=== PATIENT | female | born 1990 | race Caucasian/White ===

== ENCOUNTER → 2017-06-09 | Outpatient (CLI) | payer OTHER ==
[~2017-06-09] VITALS: Ht 154.9 cm; Wt 73.0 kg
[~2017-06-09] MED LIST: ENDOCET 5-3251 EACH PO; Motrin PO; NATALCARE RX1 TABLE1 PO; PRENATAL TABLE1 EAC3 PO; SEASONIQUE 01 TABLET PO; UNISOM SLEEP AI25 MG PO; VITAMIN B-650 M1 PO
[2017-06-09 13:48] VITALS: BP 119/59
== END | disposition home or self-care (01) ==
LOC: IVINF 13:00
DX: Z31.82 Encounter for Rh incompatibility status (principal); Z3A.31 31 weeks gestation of pregnancy
CPT/HCPCS: 96372; J2790

== ENCOUNTER 2017-07-06 19:40 | Inpatient (IN) | payer OTHER ==
[~2017-07-06] VITALS: Ht 154.9 cm; Wt 74.0 kg
[2017-07-06 20:41] VITALS: BP 106/65
[2017-07-06 20:59] LABS: EOSINOPHIL (%) 0.6 % (0-5); EOSINOPHIL COUNT 0.1 K/uL (0-0.3); HEMATOCRIT 31.4 % (36.0-46.0); IMMATURE GRANULOCYTE (%) 0.6 % (0.0-0.7); IMMATURE GRANULOCYTE COUNT 0.1 K/uL; INSTRUMENT ABS NEUTROPHIL CT 6.8 K/uL; LYMPHOCYTE COUNT 1.9 K/uL (1.0-2.8); MCH 28.3 PG (29.0-34.0); MCHC 33.8 G/DL (30.0-36.0); MCV 83.7 FL (83-99); MEAN PLAT.VOLUME 12.1 uM^3 (9.5-12.4); MONOCYTE (%) 7.2 % (3-12); MONOCYTE COUNT 0.7 K/uL (0-0.8); NEUTROPHIL (%) 71.3 % (45-76); NEUTROPHIL COUNT 6.8 K/uL (1.8-6.4); PLATELET COUNT 152 K/uL (156-360); RBC DIS.WIDTH-CV 12.3 % (11.8-14.6); RBC DIS.WIDTH-SD 37.7 % (39-53); RED BLOOD COUNT 3.75 M/uL (3.80-5.20); WHITE BLOOD COUNT 9.6 K/uL (4.1-10.2)
[2017-07-06 21:42] VITALS: BP 108/61
[2017-07-06 21:49] LABS: DRSB INTERNAL CONTROL PASS; PROBE CHECK PASS; SPECIMEN PROCESSING CONTROL PASS
[2017-07-06 22:11] LABS: ADD MIUA? NO; BILIRUBIN NEGATIVE; BLOOD NEGATIVE; COLOR STRAW ((YELLOW)); GLUCOSE (STRIP) NEGATIVE; KETONES NEGATIVE; LEUKOCYTES NEGATIVE; NITRITE NEGATIVE; PROTEIN (STRIP) NEGATIVE; SPECIFIC GRAVITY 1.008 (1.000-1.030); UROBILINOGEN 0.2 MG/DL (0.2-1.0)
[2017-07-06 23:25] VITALS: BP 123/70
[2017-07-07] VITALS (21 sets, daily range): BP systolic 88–120; BP diastolic 52–66
[2017-07-07] MEDS ORDERED: ZOLOFT50 MG PO (00:10)
[2017-07-07 00:36] LABS: AMPHETAMINE NEGATIVE (500 ng/mL); BARBITURATES NEGATIVE (200 ng/mL); BENZODIAZEPINES NEGATIVE (150 ng/mL); COCAINE NEGATIVE (150 ng/mL); INTERNAL CONTROLS VALID? YES; METHADONE NEGATIVE (200 ng/mL); METHAMPHETAMINE NEGATIVE (500 ng/mL); OPIATES (MORPHINE) NEGATIVE (100 ng/mL); OXYCODONE NEGATIVE (100 ng/mL); PHENCYCLIDINE NEGATIVE (25 ng/mL); PROPOXYPHENE NEGATIVE (300 ng/mL); THC CANNABINOIDS NEGATIVE (50 ng/mL); TRICYCLIC ANTIDEPRESSANTS NEGATIVE (300 ng/mL)
[2017-07-08 07:04] VITALS: BP 113/67
[2017-07-08 07:11] LABS: EOSINOPHIL (%) 0.1 % (0-5); HEMATOCRIT 29.7 % (36.0-46.0); IMMATURE GRANULOCYTE (%) 0.8 % (0.0-0.7); IMMATURE GRANULOCYTE COUNT 0.1 K/uL; INSTRUMENT ABS NEUTROPHIL CT 8.6 K/uL; LYMPHOCYTE COUNT 2.1 K/uL (1.0-2.8); MCHC 32.7 G/DL (30.0-36.0); MCV 85.8 FL (83-99); MEAN PLAT.VOLUME 12.7 uM^3 (9.5-12.4); MONOCYTE (%) 5.8 % (3-12); MONOCYTE COUNT 0.7 K/uL (0-0.8); NEUTROPHIL (%) 75.1 % (45-76); NEUTROPHIL COUNT 8.6 K/uL (1.8-6.4); PLATELET COUNT 141 K/uL (156-360); RBC DIS.WIDTH-CV 12.4 % (11.8-14.6); RBC DIS.WIDTH-SD 38.7 % (39-53); RED BLOOD COUNT 3.46 M/uL (3.80-5.20); WHITE BLOOD COUNT 11.5 K/uL (4.1-10.2)
[2017-07-08 15:09] VITALS: BP 109/62
[2017-07-09 07:29] VITALS: BP 112/66
[2017-07-09] MEDS ORDERED: IBUPROFEN800 MG PO (09:42)
[2017-07-09] MEDS ORDERED: FERROCITE324 MG PO (09:43)
[2017-07-09] MEDS ORDERED: DOCUSATE SODIU100 MG PO (09:43)
[2017-07-09] MEDS ORDERED: CAMILA0.35 MG PO (09:43)
[2017-07-09 15:26] VITALS: BP 107/66
== END 2017-07-09 20:30 | disposition home or self-care (01) | DRG 775 ==
LOC: LDRP-OP 19:40 → 2WEST 19:41
PROVIDERS: Advanced Practice Midwife
DX: O42.013 Preterm premature rupture of membranes, onset of labor within 24 hours of rupture, third trimester (principal); O99.02 Anemia complicating childbirth; D62 Acute posthemorrhagic anemia; Z3A.35 35 weeks gestation of pregnancy; Z37.0 Single live birth
CPT/HCPCS: 81003; 83030; 85025; 86850; 86870; 86900; 86901; 86905; 86920; 87070; 87075; 87081; 87086; 87205; 87653; 88307; C1755; G0378; J0702; J2540; J2790; J7120